=== PATIENT | male | born 1960 | race Asian ===

== ENCOUNTER 2020-09-03 05:34 | Day surgery (SDC) | payer OTHER ==
[2020-09-03] MEDS ORDERED: LIDOCAINE HCL/PF 2% SDV 5ML VIAL ONE (10:48)
[2020-09-03] MEDS ORDERED: PROPOFOL 20 ML ONE (10:49)
[2020-09-03] MEDS ORDERED: MIDAZOLAM HCL 2 MG/2 ML SINGLE DOSE VIAL ONE (10:49)
[2020-09-03 12:10] VITALS: BMI 24.3
== END 2020-09-03 12:35 | disposition home or self-care (01) ==
LOC: JASU-SURG 05:34
PROVIDERS: ATTEND Physical Medicine & Rehabilitation
DX: Z53.8 Procedure and treatment not carried out for other reasons (principal)